=== PATIENT | male | born 1990 | race African-American/Black ===

== ENCOUNTER 2019-12-09 18:33 | Emergency (ER) | payer MEDICAID ==
[~2019-12-09] VITALS: Ht 180.3 cm; Wt 74.8 kg
--- NOTE | 2019-12-09 19:04 | NUR ---
ED Nurse Note: Report given to GUILLERMO Nuñez. Placed patient on laboratory monitor. Applied seizure pads on side rails.
--- NOTE | 2019-12-09 19:05 | NUR ---
ED Nurse Note: Patient came from home d/t unwitnessed syncopal episode, per pt it lasted approximately 1 minute. Patient reports he stood up and felt busy then lost consciousness. Patient has an approximately 0.5 inch laceration on chin. Patient aao x 4 and ambulatory. Patient c/o aching pain 6/10 on neck and bilateral temporal area. IV on Left AC 20g established, blood drawn and sent to lab along with urine. accucheck 110 mg/dL. Patient on school bus monitor, no acute distress noted.
[2019-12-09 19:16] VITALS: BP 119/65
--- NOTE | 2019-12-09 19:18 | NUR ---
ED Nurse Note: Patient taken to CT in stable condition
--- NOTE | 2019-12-09 19:28 | Emergency Room Report ---
History of Present Illness General Chief Complaint: Syncope Source: Patient (Keyla Peacock) Present Illness HPI 29-year-old male with no known significant past medical history here complaining of syncope and loss of consciousness. Patient reports that he was feeling dizzy earlier today and was laying down, he abruptly and felt bedroom and was unconscious for a few seconds. Reports that when he woke up he was convulsing. Patient reports that he drank few hours prior to laying down today. Reports that he smokes marijuana and tobacco every day. Also reports that he has used fentanyl in the past however nothing recent. Of minor laceration noted on the bottom of right lip. Up-to-date with tetanus shot. Eye twitching has been noticed and patient also has dizziness. Denies any nausea vomiting blurry vision. Speaking full sentences. Complains of 5 out of 10 right-sided neck and eye pain. Does not recall what he had his head and neck against. Not taking any blood thinners. Denies abdominal pain, nausea vomiting, no other associate symptoms. Denies any history of seizures or ever taking any seizure medication. Denies urinary or bowel incontinence (Keyla Peacock) Allergies: Coded Allergies: No Known Allergies (Unverified , 12/09/19) COVID-19 Screening Contact w/high risk pt: No Experienced COVID-19 symptoms?: No COVID-19 Testing performed [employer]: No (Keyla Peacock) Patient History Past Medical History: see triage record Past Surgical History: none Pertinent Family History: none Social History: Reports: alcohol use, drug use - marijuana Immunizations: UTD Reviewed Nursing Documentation: PMH: Agreed; PSxH: Agreed (Keyla Peacock) Nursing Documentation-PMH Past Medical History: No History, Except For History Of Psychiatric Problem: Yes - anxiety (Keyla Peacock) Review of Systems All Other Systems: negative except mentioned in HPI (Keyla Peacock) Physical Exam Vital Signs Date Time Temp Pulse Resp B/P (MAP) Pulse Ox O2 Delivery O2 Flow Rate FiO2 12/09/19 18:50 97.5 91 16 136/80 (98) 99 Room Air Sp02 EP Interpretation: reviewed, normal General Appearance: alert, non-toxic, mild distress Head: normocephalic, atraumatic Eyes: bilateral eye normal inspection, bilateral eye PERRL ENT: hearing grossly normal, normal pharynx, no angioedema, normal voice Neck: full range of motion, supple, thyroid normal, no meningismus, no bony tend, supple/symm/no masses Respiratory: lungs clear, normal breath sounds, no rhonchi Cardiovascular #1: regular rate, rhythm, no edema Cardiovascular #2: 2+ carotid (R), 2+ carotid (L), 2+ radial (R), 2+ radial (L) Gastrointestinal: normal bowel sounds, non tender, soft, non-distended, no guarding, no rebound Genitourinary: no CVA tenderness Musculoskeletal: back normal, no calf tenderness, non-tender, other - Periorbi honey swelling, small laceration right lower lip, right-sided neck contusion Neurologic: alert, motor strength/tone normal, oriented x3, sensory intact, responsive, speech normal Psychiatric: judgement/insight normal, memory normal, mood/affect normal, no suicidal/homicidal ideation Skin: laceration - Small laceration bottom of right lip Lymphatic: no adenopathy (Keyla Peacock) Procedures Laceration/Wound Repair Laceration/Wound Repair : Consent: Verbal Wound Location: face Wound's Depth, Shape: superficial Wound Length (cm): 1 Wound Explored: clean Wound Repaired With: Steri-strips Sterile Dressing Applied?: Yes Patient Tolerated: Well Complications: None (Keyla Peacock) Medical Decision Making PA Attestation All diagnoses and treatment plans were reviewed and discussed with my supervising physician Dr. Crocker (Keyla Peacock) Diagnostic Impression: Primary Impression: Syncopal seizure Additional Impression: Laceration of lip ER Course 29-year-old male with no known significant past medical history here complaining of syncope and loss of consciousness. Patient reports that he was feeling dizzy earlier today and was laying down, he abruptly and felt bedroom and was unconscious for a few seconds. Reports that when he woke up he was convulsing. Patient reports that he drank few hours prior to laying down today. Reports that he smokes marijuana and tobacco every day. Also reports that he has used fentanyl in the past however nothing recent. Of minor laceration noted on the bottom of right lip. Up-to-date with tetanus shot. Eye twitching has been noticed and patient also has dizziness. Denies any nausea vomiting blurry vision. Speaking full sentences. Complains of 5 out of 10 right-sided neck and eye pain. Does not recall what he had his head and neck against. Not taking any blood thinners. Denies abdominal pain, nausea vomiting, no other associate symptoms. Denies any history of seizures or ever taking any seizure medication. Denies urinary or bowel incontinence Ddx considered but are not limited to: cerebral hematoma, concussion, skull fracture, head contusion Vital signs: are WNL, pt. is afebrile H&PE are most consistent with: Sickle cell seizure, laceration of left ORDERS: ER seizure order set ED INTERVENTIONS: NS bolus DISCHARGE: At this time pt. is stable for d/c to home. Will provide printed patient care instructions, and any necessary prescriptions. Care plan and follow up instructions have been discussed with the patient prior to discharge. Avoid marijuana use, follow-up primary care provider for further evaluation possible referral to neurologist may be needed. If worsening symptoms return to the emergency room (Keyla Peacock) ER Course Please see above note. Patient discussed in detail with PA. Agree with assessment and treatment plan. (Suleman Crocker MD) EKG Diagnostic Results Rate: normal Rhythm: NSR ST Segments: no acute changes Other Impression No acute ST changes ASA given to the pt in ED: No (Keyla Peacock) Chest X-Ray Diagnostic Results Chest X-Ray Diagnostic Results : Chest X-Ray Ordered: Yes # of Views/Limited/Complete: 1 View Indication: Other EP Interpretation: Yes PA Xray: Interpretation reviewed, by supervising MD, and agrees with findings. Interpretation: no consolidation, no effusion, no pneumothorax, no acute cardiopulmonary disease Impression: No acute disease Electronically Signed by: Keyla AGUDELO Scribe Text FINDINGS: Single limited portable frontal view demonstrates a normal cardiomediastinal silhouette. The lungs are clear. No pleural effusions. No clinically significant pneumothorax. No displaced fractures are identified. IMPRESSION: No acute cardiopulmonary disease. (Keyla Peacock) Chest X-Ray Diagnostic Results : Electronically Signed by: Rohit Prajapati documentation of Xray reviewed by me and is a ccurate, Suleman Crocker MD (Suleman Crocker MD) CT/MRI/US Diagnostic Results CT/MRI/US Diagnostic Results #1: Imaging Test Ordered: Head CT no contrast Impression TECHNIQUE: Axial computed tomography images of the head/brain without intravenous contrast. One or more of the following dose reduction techniques were used: automated exposure control, adjustment of the mA and/or kV according to patient size, use of iterative reconstruction technique. CTDI 20 mGy and DLP 566 mGy-cm. COMPARISON: No relevant prior studies available. FINDINGS: Brain: Unremarkable. No hemorrhage. No significant white matter disease. No edema. Ventricles: Unremarkable. No ventriculomegaly. Bones/joints: Unremarkable. No acute fracture. Soft tissues: Unremarkable. Sinuses: Unremarkable as visualized. No acute sinusitis. Mastoid air cells: Unremarkable as visualized. No mastoid effusion. IMPRESSION: Normal head/brain CT. No acute fracture or acute intracranial process. CT/MRI/US Diagnostic Results #2: Imaging Test Ordered: CT facial no contrast Impression TECHNIQUE: Axial computed tomography images of the face without intravenous contrast. CTDI is 53.4 mGy and DLP is 1125.7 mGy-cm. One or more of the following dose reduction techniques were used: automated exposure control, adjustment of the mA and/or kV according to patient size, use of iterative reconstruction technique. COMPARISON: No relevant prior studies available. FINDINGS: Bones/joints: No acute fracture. Soft tissues: Unremarkable. Orbits: Unremarkable. Sinuses: Unremarkable. No air-fluid levels. IMPRESSION: No acute fracture or dislocation. CT/MRI/US Diagnostic Results #3: Imaging Test Ordered: CT C-spine no contrast Impression COMPARISON: No relevant prior studies available. FINDINGS: Vertebrae: No acute fracture. Small C5-C6 inferior posterior limbus vertebra incidentally noted. Discs/spinal canal/neural foramina: No acute findings. No spinal canal stenosis. Soft tissues: Unremarkable. No focal soft tissue edema. Lung apices: No pneumothorax. IMPRESSION: No acute fracture or dislocation/malalignment. No focal soft tissue edema. (Keyla Peacock) Last Vital Signs Date Time Temp Pulse Resp B/P (MAP) Pulse Ox O2 Delivery O2 Flow Rate FiO2 12/09/19 18:50 97.5 91 16 136/80 (98) 99 Room Air (Keyla Peacock) Disposition: HOME, SELF-CARE Condition: Stable Referrals: NOT CHOSEN IPA/,REFERRING (PCP) Patient Instructions: Facial Laceration, [id number], Syncope Additional Instructions: Avoid marijuana use, follow-up primary care provider for further evaluation possible referral to neurologist may be needed. If worsening symptoms return to the emergency room Keyla Peacock Dec 09, 2019 19:28 Suleman Crocker MD Dec 10, 2019 01:46
--- NOTE | 2019-12-09 19:40 | NUR ---
ED Nurse Note: ER PA at bedside
--- NOTE | 2019-12-09 19:57 | Diagnostic Imaging Report ---
EXAM: CT Head Without Intravenous Contrast CLINICAL HISTORY: TRAUMA TECHNIQUE: Axial computed tomography images of the head/brain without intravenous contrast. One or more of the following dose reduction techniques were used: automated exposure control, adjustment of the mA and/or kV according to patient size, use of iterative reconstruction technique. CTDI 20 mGy and DLP 566 mGy-cm. COMPARISON: No relevant prior studies available. FINDINGS: Brain: Unremarkable. No hemorrhage. No significant white matter disease. No edema. Ventricles: Unremarkable. No ventriculomegaly. Bones/joints: Unremarkable. No acute fracture. Soft tissues: Unremarkable. Sinuses: Unremarkable as visualized. No acute sinusitis. Mastoid air cells: Unremarkable as visualized. No mastoid effusion. IMPRESSION: Normal head/brain CT. No acute fracture or acute intracranial process.
--- NOTE | 2019-12-09 20:01 | Diagnostic Imaging Report ---
EXAM: CT Maxillofacial Without Intravenous Contrast CLINICAL HISTORY: TRAUMA TECHNIQUE: Axial computed tomography images of the face without intravenous contrast. CTDI is 53.4 mGy and DLP is 1125.7 mGy-cm. One or more of the following dose reduction techniques were used: automated exposure control, adjustment of the mA and/or kV according to patient size, use of iterative reconstruction technique. COMPARISON: No relevant prior studies available. FINDINGS: Bones/joints: No acute fracture. Soft tissues: Unremarkable. Orbits: Unremarkable. Sinuses: Unremarkable. No air-fluid levels. IMPRESSION: No acute fracture or dislocation.
--- NOTE | 2019-12-09 20:09 | Diagnostic Imaging Report ---
EXAM: CT Cervical Spine Without Intravenous Contrast CLINICAL HISTORY: TRAUMA TECHNIQUE: Axial computed tomography images of the cervical spine without intravenous contrast. One or more of the following dose reduction techniques were used: automated exposure control, adjustment of the mA and/or kV according to patient size, use of iterative reconstruction technique.CTDI 69 mGy and DLP 1500 mGy-cm. COMPARISON: No relevant prior studies available. FINDINGS: Vertebrae: No acute fracture. Small C5-C6 inferior posterior limbus vertebra incidentally noted. Discs/spinal canal/neural foramina: No acute findings. No spinal canal stenosis. Soft tissues: Unremarkable. No focal soft tissue edema. Lung apices: No pneumothorax. IMPRESSION: No acute fracture or dislocation/malalignment. No focal soft tissue edema.
--- NOTE | 2019-12-09 20:12 | Diagnostic Imaging Report ---
INDICATION: Pain COMPARISON: Unavailable. FINDINGS: Single limited portable frontal view demonstrates a normal cardiomediastinal silhouette. The lungs are clear. No pleural effusions. No clinically significant pneumothorax. No displaced fractures are identified. IMPRESSION: No acute cardiopulmonary disease.
[2019-12-09 20:15] LABS: APPEARANCE,URINE CLEAR; BILIRUBIN, URINE NEGATIVE (NEGATIVE); GLUCOSE, URINE (UA) NEGATIVE (NEGATIVE); KETONES,URINE 1+ (NEGATIVE); LEUKOCYTE ESTERASE ,URINE NEGATIVE (NEGATIVE); NITRITE,URINE NEGATIVE (NEGATIVE); PH,URINE 5 (4.5-8.0); PROTEIN,URINE 1+ (NEGATIVE); UROBILINOGEN,URINE NORMAL MG/DL (0.0-1.0)
[2019-12-09 20:16] LABS: COLOR,URINE YELLOW
[2019-12-09 20:18] LABS: BASOPHILS % (AUTO) 0.8 % (0.0-2.0); EOSINOPHILS % (AUTO) 0.4 % (0.0-3.0); HEMATOCRIT 43.4 % (42.0-52.0); HEMOGLOBIN 14.5 G/DL (14.2-18.0); LYMPHOCYTES % (AUTO) 17.1 % (20.0-45.0); MEAN CORPUSCULAR VOLUME 91 FL (80-99); MONOCYTES % (AUTO) 7.7 % (1.0-10.0); PLATELET COUNT 350 K/UL (150-450); RED BLOOD COUNT 4.76 M/UL (4.70-6.10); RED CELL DISTRIBUTION WIDTH 12.7 % (11.6-14.8); WHITE BLOOD COUNT 8.6 K/UL (4.8-10.8)
[2019-12-09 20:19] LABS: ANION GAP 5 mmol/L (5-15); BLOOD UREA NITROGEN 12 mg/dL (7-18); CALCIUM 8.7 MG/DL (8.5-10.1); CARBON DIOXIDE 33 MMOL/L (21-32); CHLORIDE 100 MMOL/L (98-107); CREATININE 1.1 MG/DL (0.55-1.30); POTASSIUM 3.8 MMOL/L (3.5-5.1); SODIUM 138 MMOL/L (136-145)
[2019-12-09 20:23] LABS: ALANINE AMINOTRANSFERASE 15 U/L (12-78); ALBUMIN 3.9 G/DL (3.4-5.0); ALBUMIN/GLOBULIN RATIO 1.4 (1.0-2.7); ALKALINE PHOSPHATASE 60 U/L (46-116); ASPARTATE AMINO TRANSFERASE 15 U/L (15-37); BILIRUBIN,TOTAL 0.4 MG/DL (0.2-1.0); CREATINE KINASE 164 U/L (26-308)
[2019-12-09 20:40] VITALS: BP 122/78
--- NOTE | 2019-12-09 20:40 | NUR ---
ER DISCHARGE NOTE: Patient is cleared to be discharged per ERMD, pt is aox4, on room air, with stable vital signs. pt was given dc instructions, pt was able to verbalize understanding, pt id band and iv site removed intact without complications. pt is able to ambulate with steady gait. pt took all belongings. pt stable upon discharge.
--- NOTE | 2019-12-12 20:55 | Cardiology Report ---
APPROVED REPORT EKG Measurement Heart [id number] <Conclusion> Sinus rhythm with marked sinus arrhythmia Otherwise normal ECG
== END 2019-12-09 20:40 | disposition home or self-care (01) ==
LOC: EMR 19:14
DX: S01.511A Laceration without foreign body of lip, initial encounter (principal); R55 Syncope and collapse; F41.9 Anxiety disorder, unspecified; F12.90 Cannabis use, unspecified, uncomplicated; F17.200 Nicotine dependence, unspecified, uncomplicated; H57.10 Ocular pain, unspecified eye; S10.93XA Contusion of unspecified part of neck, initial encounter; X58.XXXA Exposure to other specified factors, initial encounter; Y92.9 Unspecified place or not applicable; R22.0 Localized swelling, mass and lump, head
CPT/HCPCS: 36415; 70450; 70486; 71045; 72125; 80053; 80307; 81003; 82550; 82962; 84484; 85025; 93005; 96360; G0480; J7030; Z7502; 99284